=== PATIENT | male | born 1975 | race Caucasian/White ===

== ENCOUNTER 2020-04-09 11:53 | Emergency (ER) | payer MEDICAID, SELFPAY ==
[2020-04-09 11:54] VITALS: BP 174/81; PULSE 104; RESP 16; TEMP 36.2; O2SAT 95; BMI 29.8
--- NOTE | 2020-04-09 12:20 | ED.DCSUM_ITS ---
History of Present Illness Chief Complaint: Chest Pain Informant: Patient Narrative: 44-year-old male presenting for the evaluation of chest pain. Patient tells me that he was at work today when he developed a pain midsternum described as sharp. He also developed a headache. He tells me that coworkers felt he did not look good with the nurse called the ambulance and brought into the hospital. Patient states that he gets these episodes a couple times a month for the past 4 years. Typically he will just go to bed and when he wakes up his symptoms have resolved. He states that he has felt fatigue over these past 4 years. He notes a history of Parkinson's, diabetes, and Crohn's disease. The patient states currently is not any meant on any medications for Crohn's disease. He notes his blood sugar is high today because he forgot to take his short acting insulin. Patient is a smoker. Past Medical History - Allergies and Home Meds Allergies/Adverse Reactions: Allergies No Known Allergies Allergy (Verified 04/09/20 12:41) Primary Care Physician: NOT,DEFINED [Primary Care Provider] - Past Medical History: - - Parkinson's, colitis, diabetes Surgical History: noncontributory Smoking Status: Current every day smoker Drugs: None Review of Systems General: Denies: Chills, Fever, Sweats Eyes: Denies: Visual changes - bilaterally, Diplopia ENT: Denies: Rhinorrhea, Sore throat Cardiovascular: Reports: Chest pain. Denies: Palpitations Respiratory: Denies: Dyspnea, Cough, Dyspnea on exertion Gastrointestinal: Denies: Abdominal pain, Nausea, Vomiting, Diarrhea, Melena, Hematochezia Genitourinary: Denies: Dysuria, Hematuria, Frequency Musculoskeletal: Denies: Back pain, Extremity Pain Skin: Denies: Rash, Wounds Neurological: Reports: Headache. Denies: Weakness, Numbness Physical Exam Vital Signs/Narrative: Vital Signs Temp Pulse Resp BP Pulse Ox 04/09/20 11:54 97.2 F L 104 H 16 174/81 H 95 Inital Vital Signs reviewed: Yes General: Well nourished, Well developed, No Acute Distress Head: Normocephalic, Atraumatic Eyes: Perrl, EOMI ENT: Moist mucous membranes, No rhinorrhea Neck: Supple, Nontender Cardiovascular: Regular rate, Regular rhythm, No murmurs Respiratory: No distress, CTA bilaterally, Chest nontender Abdomen: Soft, Nontender, Nondistended, Normal bowel sounds Back: Nontender, Normal Inspection Extremities: Nontender, No edema Skin: Normal color, No rash Neurological: Alert, Oriented x3, Cranial nerves II-XII grossly intact, Normal Strength, Normal Sensation Psychological: Normal affect, Normal Mood Diagnostic/Tx/Re-eval Clinical Impression(s) from Imaging Studies Chest X-Ray 04/09/20 12:45 IMPRESSION: No acute abnormality is seen. Electronically Signed: Santiago Brooke MD at 13:00 EST , Service support , Laboratory Last Values WBC 9.7 K/mm3 (4.4-11.0) 04/09/20 12:20 RBC 5.03 M/mm3 (4.6-6.2) 04/09/20 12:20 Hgb 14.7 g/dL (13.0-16.5) 04/09/20 12:20 Hct 42.7 % (40-54) 04/09/20 12:20 MCV 84.9 fL (80-94) 04/09/20 12:20 MCH 29.2 pg (27.0-32.0) 04/09/20 12:20 MCHC 34.4 g/dL (32-36) 04/09/20 12:20 RDW Std Deviation 36.3 fl (35.1-43.9) 04/09/20 12:20 RDW Coeff of Carmela 11.9 % (11.6-14.6) 04/09/20 12:20 Plt Count 313 K/mm3 (150-450) 04/09/20 12:20 MPV 8.9 fl (6.2-12.0) 04/09/20 12:20 Immature Gran % (Auto) 0.400 % (0.0-0.9) 04/09/20 12:20 Neut % (Auto) 78.9 % (47-70) H 04/09/20 12:20 Lymph % (Auto) 13.4 % (19-41) L 04/09/20 12:20 [place] % (Auto) 6.6 % (0-10) 04/09/20 12:20 Eos % (Auto) 0.4 % (0-5) 04/09/20 12:20 Baso % (Auto) 0.3 % (0-1) 04/09/20 12:20 Absolute Neuts (auto) 7.7 X10^3/uL (2.0-7.7) 04/09/20 12:20 Absolute Lymphs (auto) 1.30 X10^3/uL (0.83-4.51) 04/09/20 12:20 Nucleated RBC % 0 % (0-5) 04/09/20 12:20 Sodium 136 mmol/L (136-145) 04/09/20 12:20 Potassium 4.0 mmol/L (3.5-5.1) 04/09/20 12:20 Chloride 103 mmol/L (98-107) 04/09/20 12:20 Carbon Dioxide 22.0 mmol/L (21.0-32.0) 04/09/20 12:20 Anion Gap 11 (5-15) 04/09/20 12:20 BUN 18 mg/dL (7-18) 04/09/20 12:20 Creatinine 1.21 mg/dL (0.70-1.30) 04/09/20 12:20 Estim Creat Clear Calc 87.29 ml/min 04/09/20 12:20 Est GFR (MDRD) Af Amer 84 mL/min (>60) 04/09/20 12:20 Est GFR (MDRD) Non-Af 70 mL/min (>60) 04/09/20 12:20 BUN/Creatinine Ratio 14.9 RATIO (10-20) 04/09/20 12:20 Glucose 246 mg/dL (74-106) H 04/09/20 12:20 Calcium 9.3 mg/dL (8.5-10.1) 04/09/20 12:20 Troponin I < 0.015 ng/mL (<0.045) 04/09/20 12:20 - Medical Decision Making Patient's had no events on the monitor. Her troponin is negative. This has been a recurrent issue for years I have low suspicion that it is cardiac. Its been over 8 years since he has had a colonoscopy for his Crohn's disease. He does not have a doctor for his Parkinson's. He lives over in [place] and would like to be established at [facility]. I strongly encouraged him to do this. ED Disposition - Plan for ED Patient: Disposition: Home or Assisted Living Diagnosis: Chest pain Instructions: ED Chest Pain, Uncertain Cause Additional Instructions: Please establish neurologic, gastrointestinal, and primary care in [place] with the physicians of your choice
--- NOTE | 2020-04-09 12:20 | EKG12_ITS ---
Test Reason : CP Blood Pressure : / mmHG Vent. Rate : 098 BPM Atrial Rate : 098 BPM P-R Int : 146 ms QRS Dur : 092 ms QT Int : 334 ms P-R-T Axes : 033 048 013 degrees QTc Int : 426 ms Normal sinus rhythm Normal ECG Confirmed by WAN VILLANUEVA, YADIEL ([id number]), assignment editor LIS ESCOBAR ([id number]) on 04/11/2020 11:06:27 AM Referred By: CARL Confirmed By:YADIEL BLAS MD
[2020-04-09] MEDS: Ketorolac 30 MG/ML Syringe IV (12:39)
[2020-04-09 12:41] LABS: Absolute Neutrophil Count 7.7 X10^3/uL (2.0-7.7); Basophil# 0.03 X10^3/uL; Basophil% 0.3 % (0-1); Eosinophil# 0.04 X10^3/uL; Eosinophils% 0.4 % (0-5); Hematocrit 42.7 % (40-54); Hemoglobin 14.7 g/dL (13.0-16.5); Lymphocyte % 13.4 % (19-41); Mean Corp Hgb Conc 34.4 g/dL (32-36); Mean Corpuscular Hgb 29.2 pg (27.0-32.0); Mean Corpuscular Volume 84.9 fL (80-94); Mean Platelet Vol. 8.9 fl (6.2-12.0); Monocyte# 0.64 X10^3/uL; Monocyte% 6.6 % (0-10); NRBC Flagged by Analyzer 0 % (0-5); Neutrophil # 7.68 X10^3/uL (2.7-7.7); Neutrophil % 78.9 % (47-70); Platelet Count 313 K/mm3 (150-450); RBC Distribution Width CV 11.9 % (11.6-14.6); RBC Distribution Width SD 36.3 fl (35.1-43.9); Red Blood Count 5.03 M/mm3 (4.6-6.2); White Blood Count 9.7 K/mm3 (4.4-11.0)
--- NOTE | 2020-04-09 12:45 | RAD_ITS ---
STUDY: X-RAY CHEST REASON FOR EXAM: Male, 44 years old. Chest pain starting this morning, headache TECHNIQUE: Single AP portable view of the chest. COMPARISON: None. FINDINGS: EKG electrodes are seen. The lungs are clear and expanded. Scattered calcified granulomas. There is no demonstrated pleural abnormality. Normal size heart. Normal mediastinum and yesi. Normal visualized pulmonary arteries. Normal visualized aortic arch and descending thoracic aorta. Normal visualized thoracic spine. Normal visualized ribs, clavicles, and shoulders. There is no demonstrated abnormality of the visualized soft tissue structures of the upper abdomen. RAD/Chest 1 View (Portable) IMPRESSION: No acute abnormality is seen. Electronically Signed: Santiago Brooke MD at 13:00 EST , Service support ,
[2020-04-09 12:59] LABS: Anion Gap 11 (5-15); BUN 18 mg/dL (7-18); BUN/Creat Ratio 14.9 RATIO (10-20); Calcium,Total 9.3 mg/dL (8.5-10.1); Chloride 103 mmol/L (98-107); Creatinine, Serum 1.21 mg/dL (0.70-1.30); EST Glomerular Filtration Rate 70 mL/min (>60); Est Glom Filt Rate - Afr Amer 84 mL/min (>60); Estimated Creatinine Clearance 87.29 ml/min; Glucose 246 mg/dL (74-106); Sodium Level 136 mmol/L (136-145)
[2020-04-09 13:12] VITALS: BP 168/96; PULSE 98; RESP 15; O2SAT 97
[2020-04-09 14:39] VITALS: BP 149/90; PULSE 87; RESP 16; O2SAT 99
--- NOTE | 2020-04-09 14:39 | ED.RN ---
called [facility] for pt. was a wait time fro dia's pt declined and walked out on his own
== END 2020-04-09 14:40 | disposition home or self-care (01) ==
PROVIDERS: Emergency Provider Emergency Medicine
DX: R07.9 Chest pain, unspecified (principal); G20 Parkinson's disease; E11.9 Type 2 diabetes mellitus without complications; F17.200 Nicotine dependence, unspecified, uncomplicated; Z79.4 Long term (current) use of insulin
CPT/HCPCS: 71045; 80048; 84484; 85025; 93005; 96374; 99285; A4216